=== PATIENT | male | born 1935 | race Caucasian/White ===

== ENCOUNTER 2020-09-22 15:12 | Inpatient (IN) | payer MEDICARE ==
[~2020-09-22] VITALS: Ht 180.3 cm; Wt 85.6 kg
[~2020-09-22 15:12] MED LIST: ALBIPROI INH; ALBU90OI INH; AMOCLA875 PO; AMPI500 PO; ASPI81CH PO; Bactrim Ds Tab1 EACH PO; CEPH500 PO; CYAN1000 PO; ERGO400 PO; FISH1000 PO; HYDACE5 PO; HYDMOR4 PO; HYDPAM50 PO; IBUP600 PO; LEVFLO500 PO; MECL25 PO; MONDOXYNE NL100 MG PO; Norco 5-325 Ta1 EACH PO; ONDA8 PO; PRED20 PO; PROACE100 PO; RXANTBENOT BOTHEARS; TAMS.4ER PO; VITAMIN C COMPLEX PO; Zofran Odt4 MG SL
[2020-09-22 15:56] LABS: BASOPHILS ABSOLUTE AUTO 0.02 K/mm3 (0.00-0.23); BASOPHILS PERCENT AUTO 0 % (0-2); EOSINOPHILS ABSOLUTE AUTO 0.08 K/mm3 (0.00-0.68); EOSINOPHILS PERCENT AUTO 1 % (0-6); Hematocrit 45.1 % (37.0-53.0); Hemoglobin 14.8 g/dL (13.5-17.5); IMMATURE GRAN ABSOLUTE AUTO 0.07 K/mm3 (0.00-0.10); IMMATURE GRAN PERCENT AUTO 1 % (0-1); LYMPHOCYTES ABSOLUTE AUTO 1.28 K/mm3 (0.84-5.20); LYMPHOCYTES PERCENT AUTO 14 % (21-46); MONOCYTES ABSOLUTE AUTO 0.69 K/mm3 (0.16-1.47); MONOCYTES PERCENT AUTO 8 % (4-13); Mean Corpuscular HGB 32.2 pg (26.0-34.0); Mean Corpuscular HGB Conc 32.8 g/dL (31.5-36.5); Mean Corpuscular Volume 98 fL (80-100); NEUTROPHILS ABSOLUTE AUTO 6.75 K/mm3 (1.96-9.15); NEUTROPHILS PERCENT AUTO 76 % (41-73); Platelet Count 295 K/mm3 (150-400); RDW Coefficient Variation 12.5 % (11.7-14.2); RDW Standard Deviation 45.2 fL (35.1-46.3); Red Blood Cell Count 4.59 M/mm3 (4.30-5.90); White Blood Cell Count 8.89 K/mm3 (4.00-11.30)
[2020-09-22 16:12] LABS: Albumin, Blood 3.8 g/dL (3.4-5.0); Albumin/Globulin Ratio 1.1 (0.8-1.8); Bilirubin, Total 0.8 mg/dL (0.1-1.0); Bun/Creatinine Ratio 14.1 (12.0-20.0); Calcium, Blood 9.4 mg/dL (8.5-10.1); Creatinine, Blood 1.28 mg/dL (0.60-1.20); Globulin, Blood 3.6 g/dL (2.2-4.0); Total Protein, Blood 7.4 g/dL (6.4-8.2)
[2020-09-22 21:22] LABS: Source, Urine Clean Catch
[2020-09-22 21:24] LABS: Appearance, Urine Clear (Clear); Bilirubin, Urine Neg (Neg); Blood, Urine 1+ (Neg); Color, Urine Yellow (P-Yellow); Glucose Qualitative, Urine Neg (Neg); Ketones, Urine 3+ (Neg); Leukocyte Esterase, Urine Neg (Neg); Nitrite, Urine Neg (Neg); Protein, Urine 2+ (Neg); Urobilinogen, Urine NORM (Normal)
[2020-09-22 21:30] LABS: Red Blood Cells, Urine 0-2 /hpf (0-2)
[2020-09-22 21:31] LABS: Bacteria Mod /hpf; Squamous Epithelial Cells Not Seen /hpf (Few)
--- NOTE | 2020-09-22 21:43 | NUR ---
NEW ADMIT FROM ER FOR MULTIPLE RIB FX FOLLOWING A FALL WITH A BOOKSHELF LANDING ON HIM. PT ARRIVES TO ROOM VIA GURNEY, ALERT BUT CONFUSED AND ONLY ORIENTED TO SELF. PT DOES CRY OUT IN PAIN WITH MOVEMENT TO BED AND REPOSITIONING. DID PLACE ON LIDOCAINE PATCHES AND MEDICATED WITH ONE OXYCODONE. PT KEPT TRYING TO GET OOB TO URINATE, BUT ONLY URINATED 50ML. BLADDER SCAN SHOWED 316. WILL MONITOR THAT CLOSELY. PT NOW IS CURRENTLY SLEEPING. BED ALARM ON FOR SAFETY.
--- NOTE | 2020-09-23 01:07 | NUR ---
PT'S CONT PULSE OX ALARMING. PT SLEEPING AND SPO2 WAS SUSTAINING 86-88% ON RA. PLACED ON OXYGEN PER NC AND TITRATED TO 2.5L NC TO KEEP >90%.
--- NOTE | 2020-09-23 04:19 | NUR ---
SHIFT SUMMARY PT WITH HX DEMENTIA AND REMAINS CONFUSED AT BASELINE. CURRENTLY COOPERATIVE, BUT DOES TRY TO GET OOB AT TIMES. BED ALARM IN PLACE FOR SAFETY. NEEDS ASSISTANCE WITH URINAL. PT VERY PAINFUL WITH REPOSITIONING. SCHEDULED AND PRN PAIN MEDICATIONS GIVEN PER ORDERS. LIDOCAINE PATCHES IN PLACE. PLACED ON 2.5L VIA NC TO MAINTAIN SATS >90% WHILE SLEEPING. PLAN FOR CUT ORDER HAND CONSULT TODAY AND CONTINUED PAIN MANAGEMENT. CALL LIGHT WITHIN REACH.
--- NOTE | 2020-09-23 18:25 | NUR ---
SHIFT SUMMARY PT HAS BEEN ALERT AND COOPERATIVE, VERY FORGETFUL. UNSURE OF LOCATION AND FORGETFUL OF REASON FOR ADMISSION. HAS BEEN PAINFUL WITH COUGHING BUT RESTS COMFORTABLY OTHERWISE. UP TO CHAIR FOR DINNER AND WITH THERAPY. 2 ASSIST WITH FREQUENT REMINDERS. USING URINAL FREQUENTLY. WILL CALL FOR USE, ATTEMPTS OOB WHEN NEEDS TO VOID. BED ALARM ON DURING SHIFT. PLAN IS TO CONTINUE WORKING WITH THERAPY.
--- NOTE | 2020-09-23 19:30 | NUR ---
RECEIVED REPORT AND ASSUMED CARE OF PT. HE IS LYING IN BED, PLEASANTLY CONFUSED, COOPERATIVE WITH CARE. DENIES ANY NEEDS AT THIS TIME, CALL LIGHT IN REACH. LIEN.
--- NOTE | 2020-09-24 05:21 | NUR ---
SHIFT SUMMARY: JHON AROUSES EASILY AND IS COOPERATIVE WITH CARE. VSS, NO ACUTE EVENTS OVERNIGHT. HE DOES NOT USE THE CALL LIGHT AND ATTEMPTS TO EXIT THE BED WHEN HE FEELS THE URGE TO URINATE. ATTENDS IN PLACE FOR OCCASIONAL INCONTINENCE. HE REPORTS HIS PAIN TOLERABLE WHEN NOT MOVING, BUT CRIES OUT WITH ANY MOVEMENT. TOLERATING PO INTAKE WELL, IVs TO BILATERAL ARMS PATENT, MAINTAINING SATS WITH 2 L VIA NC. HE IS LYING IN BED WITH THE CALL LIGHT IN REACH, BED ALARM ON FOR SAFETY. WILL REPORT TO DAY SHIFT RN.
[2020-09-24 09:37] LABS: Albumin, Blood 3.4 g/dL (3.4-5.0); Anion Gap 4 mmol/L (6-16); Blood Urea Nitrogen 24 mg/dL (8-24); CO2, Blood 27 mmol/L (21-32); Calcium, Blood 8.8 mg/dL (8.5-10.1); Chloride, Blood 106 mmol/L (98-108); Creatinine, Blood 1.09 mg/dL (0.60-1.20); Glomerular Filtration Rate >60 (60-); Glucose, Blood 119 mg/dL (70-99); Phosphorus, Blood 2.3 mg/dL (2.5-4.9); Potassium, Blood 3.9 mmol/L (3.5-5.5); Sodium, Blood 137 mmol/L (136-145)
--- NOTE | 2020-09-24 18:13 | NUR ---
SHIFT SUMMARY: DAY 2. PATIENT IS EATING WELL AND TAKING MEDICATIONS PER EMAR. HE HAS NOT HAD A BM SINCE BEING ADMITTED, ABDOMEN IS DISTENDED AND SLIGHTLY FIRM. BOWEL CARE MEDS WERE ORDERED PER DR, HAVE NOT BEEN ADMINISTERED. PATIENT HAS DEMENTIA AND FORGETS HE HAS BROKEN RIBS SO IT IS NEW PAIN EVERY TIME HE MOVES. PATIENT WAS FOUND STANDING IN ROOM AFTER PT LEFT. PATIENT WAS SAFELY MOVED BACK TO RECLINER AND CHAIR ALARM WAS ACTIVATED. HE WAS MOVED TO BED EARLY EVENING, BED ALARM IS SET, AND ATE DINNER. HE HAS ATTEMPTED TO EXIT THE BED ON PATIENT'S LEFT SIDE, WHICH IS ALSO THE AFFECTED SIDE. PATIENT WAS READJUSTED AND SIDE RAILS X3 WERE RAISED. PATIENT IS RESTING IN BED. TYLENOL AND IBUPROFEN WERE ADMINISTERED AT 1724.
--- NOTE | 2020-09-24 19:15 | NUR ---
RECIEVED REPORT AND ASSUMED CARE OF PT. HE IS LYING IN BED, AWAKE AND ALERT, PLEASANTLY CONFUSED. HE HAS PULLED THE IV FROM HIS LEFT HAND. HE DENIES PAIN OR ANY OTHER NEEDS AT THIS TIME. HE REORIENTS FOR ONLY A FEW MINUTES THEN REPEATS THE QUESTION. LIEN.
--- NOTE | 2020-09-24 22:08 | NUR ---
ASSUMED CARE OF PT AT THIS TIME. PT CURRENTLY RESTING IN BED WITH EYES CLOSED. BED ALARM ON, BED IN LOW POSITION, X3 RAILS UP FOR SAFETY + CALL LIGHT IN REACH.
--- NOTE | 2020-09-24 23:35 | NUR ---
TRANSFER ROOMS PT TRANSFERED FROM ROOM 228 TO 352. MEDICATED FOR DISCOMFORT BEFORE TRANSFER. REPORT TO DALLAS ELLISON. PT TRANSPORTED ON BED TO NEW ROOM WITH BELONGINGS.
--- NOTE | 2020-09-25 04:40 | NUR ---
SHIFT SUMMARY PT XFER'D FROM SURG (228) @ 0050, REC REPORT FROM DALLAS CRONIN; PT A&O X1, PAINFUL W/COUGH AND RESISTS ASSISTANCE W/BED MOVEMENT FROM STAFF D/T PAIN, BEDRESTING AT THIS TIME, CALL LIGHT IN REACH, BED ALARM ACTIVE, DENIES NEEDS AT THIS TIME, WILL CONT TO MONITOR UNTIL REPORT GIVEN TO DAY RN.
--- NOTE | 2020-09-25 17:32 | NUR ---
SHIFT SUMMARY PT ALERT TO SELF ONLY AND IMPULSIVE. PT IS PAINFUL DUE TO HAVING THREE RIB FX'S. STAND PIVOT FROM THE CHAIR TO THE BED WITH A TWO PERSON ASSIST. PT IS VOIDING ON HIS OWN AND HAS NOT EXPERIENCED ANY URINARY RETENTION THIS SHIFT. SPOKE WITH COAL HANDLING SUPERVISOR AND PT IS NOT A CANDIDATE FOR SNF DUE TO HIS DEMENTIA. PT TO DISCHARGE HOME WITH FAMILY AND POSSIBLY RECEIVE HOME HEALTH SERVICES. VSS. RESTING IN BED WITH HIS CALL LIGHT IN REACH.
--- NOTE | 2020-09-26 06:21 | NUR ---
SHIFT SUMMARY ALERT TO SELF. ABLE TO MAKE NEEDS KNOWN. COOPERATIVE WITH CARE. LUMMI. C/O PAIN/DISCOMFORT TO GENERALIZED AND L RIBS; MEDICATED PER EMAR. CONTINULLY ATTEMPTING TO EXIT BED; 4 SIDE RAIL PLACED FOR SAFETY. APPEARED TO REST MINIMALLY. NO OTHER ACUTE CHANGES NOTED. BED REMAINED IN LOWEST POSITION; ALARM ON. CALL LIGHT AND BELONGINGS WITHIN REACH. CONTINUE WITH CURRENT PLAN OF CARE. REPORT TO ONCOMING RN.
--- NOTE | 2020-09-26 18:27 | NUR ---
SHIFT SUMMARY PT ALERT TO SELF ONLY AND EXPERIENCING MORE PAIN THIS SHIFT. HE IS VERY PAINFUL TO MOVE BUT WORKED WITH WITH P/T. IN 4 BEDRAIL RESTRAINTS. PT HAS NOT TRIED TO GET UP MUCH THIS SHIFT DUE TO THE PAIN. MEDICATED WITH DILAUDID DUE TO THE PATIENT EXPERIENCING AN INCREASE IN PAIN. VSS. WILL REPORT TO ABY HAYNES.
--- NOTE | 2020-09-27 04:53 | NUR ---
SHIFT SUMMARY ALERT TO SELF. ABLE TO MAKE NEEDS KNOWN. COOPERATIVE WITH CARE. FOLLOWS DIRECTIONS. CONFUSED. [place]. C/O PAIN/DISCOMFORT TO L SIDE/GENERALIZED; MEDICATED PER EMAR. PAIN MANAGMENT APPEARS TO BE MUCH BETTER. APPEARED TO REST MUCH OF THE NIGHT. PULLS OFF O2 TUBING AND CONT BIOX CORD; REMINDED TO LEAVE IN PLACE, EXPRESSES UNDERSTANDING. VSS/AFEBRILE. NO OTHER ACUTE CHANGES NOTED. BED REMAINS IN LOWEST POSITION WITH SIDE RAILS X4 FOR SAFETY; BED ALARM ACTIVATED. CALL LIGHT AND BELONGINGS WITHIN REACH. CONTINUE WITH CURRENT PLAN OF CARE. REPORT TO ONCOMING RN.
--- NOTE | 2020-09-27 18:50 | NUR ---
BEDSIDE REPORT REPORT GIVEN BY DALLAS PATINO. STATES PATIENT HAS NOT BEEN IN RESTRAINTS (4 SIDE RAILS) ALL DAY. DOING MUCH BETTER AND GETTING UP WITH 1-2P ASSIST TO BATHROOM. APPEARS TO BE RESTING WITHOUT ANY NEEDS WATCHING TV. BED IN LOWEST POSITION; ALARM ON. CALL LIGHT WITHIN REACH.
--- NOTE | 2020-09-27 19:13 | NUR ---
SHIFT SUMMARY: PT CONFUSED; ALERT, ORIENTED TO SELF AND FAMILY; CALM AND COOPERATIVE WITH CARE. MEDICATED FOR L RIB PAIN PER EMAR. MOIST COUGH; ENCOURAGED TO USE INCENTIVE SPIROMETER & AMBULATE; BREATHING CLEARER. AWAITING SAFE DISCHARGE PLAN. REPORT GIVEN TO ONCOMING RN.
[2020-09-28 05:20] LABS: Hematocrit 39.1 % (37.0-53.0); Hemoglobin 12.9 g/dL (13.5-17.5); Mean Corpuscular HGB 32.3 pg (26.0-34.0); Mean Corpuscular Volume 98 fL (80-100); Mean Platelet Volume 10.4 fL (9.1-12.4); Platelet Count 261 K/mm3 (150-400); RDW Coefficient Variation 12.5 % (11.7-14.2); RDW Standard Deviation 45.1 fL (35.1-46.3); White Blood Cell Count 9.04 K/mm3 (4.00-11.30)
--- NOTE | 2020-09-28 05:30 | NUR ---
SHIFT SUMMARY ALERT TO SELF. CONFUSED. CONTINUED TO NEED RE-DIRECTION MUCH OF THE NIGHT. DIFFICULTY FOLLOWING DIRECTIONS. COOPERATIVE WITH CARE; HOWEVER BECOMES AGITATED WHEN WANTS TO DO THINGS HIS OWN WAY. REMINDED MULTIPLE TIMES THAT DIRECTIONS THAT ARE GIVEN ARE FOR HIS SAFETY. CONTINUAL ATTEMPTS TO GET OUT OF BED WITHOUT HELP. C/O PAIN/DISCOMFORT TO L RIBS; MEDICATED PER EMAR. BED REMAINED IN LOWEST POSITION; ALARM ON. CALL LIGHT AND BELONGINGS WITHIN REACH. CONTINUE WITH CURRENT PLAN OF CARE. REPORT TO ONCOMING RN.
[2020-09-28 05:44] LABS: Albumin, Blood 2.9 g/dL (3.4-5.0); Anion Gap 5 mmol/L (6-16); Blood Urea Nitrogen 23 mg/dL (8-24); Bun/Creatinine Ratio 21.9 (12.0-20.0); CO2, Blood 27 mmol/L (21-32); Calcium, Blood 9.2 mg/dL (8.5-10.1); Chloride, Blood 106 mmol/L (98-108); Creatinine, Blood 1.05 mg/dL (0.60-1.20); Glomerular Filtration Rate >60 (60-); Glucose, Blood 96 mg/dL (70-99); Phosphorus, Blood 3.1 mg/dL (2.5-4.9); Potassium, Blood 3.8 mmol/L (3.5-5.5); Sodium, Blood 138 mmol/L (136-145)
[2020-09-28] MEDS ORDERED: ACET500 PO (13:21)
[2020-09-28] MEDS ORDERED: DOCU100 PO (13:22)
[2020-09-28] MEDS ORDERED: IBUP400 PO (13:22)
[2020-09-28] MEDS ORDERED: SENNA LAXATIVE8.6 MG PO (13:23)
[2020-09-28] MEDS ORDERED: TAMS.4ER PO (13:24)
[2020-09-28] MEDS ORDERED: TRAM50 PO (13:25)
--- NOTE | 2020-09-28 18:31 | NUR ---
SHIFT SUMMARY PATIENT A/O TO SELF/FAMILY THIS SHIFT. PATIENT IS IMPULSIVE AND DIFFICULT TO REDIRECT. PATIENT HAS BEEN SBA IN THE ROOM. PATIENT HAS BEEN DISCHARGED TO HOME, AWAITING WHEELCHAIR TRANSPORTATION. PATIENT'S IN THE ROOM THIS AFTERNOON, RECEIVED DISCHARGE AND MEDICATION INSTRUCTIONS. PATIENT MEDICATED THROUGHOUT THIS SHIFT FOR PAIN IN L RIBS. PATIENT CURRENTLY SITTING UP IN RECLINER EATING DINNER.
--- NOTE | 2020-09-28 20:09 | NUR ---
@2003- PT. DISCHARGED TO HOME. TRANSPORTED VIA STRETCHER BY EMS. NO BELONGINGS IN THE ROOM AT THE TIME, FACE SHEET PROVIDED TO EMS.
== END 2020-09-28 20:03 | disposition home or self-care (01) | DRG 185 ==
LOC: ER 15:12 → ERHOLD 19:25 → SURS 20:05 → MEDS 09-24 23:27 → ENPENDDIS 09-28 12:28 → MEDS 09-28 20:03
PROVIDERS: Emergency Medicine; Internal Medicine; ADMIT Surgery
DX: S22.42XA Multiple fractures of ribs, left side, initial encounter for closed fracture (principal); F03.90 Unspecified dementia, unspecified severity, without behavioral disturbance, psychotic disturbance, mood disturbance, and anxiety; D64.9 Anemia, unspecified; W20.8XXA Other cause of strike by thrown, projected or falling object, initial encounter; J44.9 Chronic obstructive pulmonary disease, unspecified; I10 Essential (primary) hypertension; G47.33 Obstructive sleep apnea (adult) (pediatric); E66.9 Obesity, unspecified; K59.00 Constipation, unspecified; N40.1 Benign prostatic hyperplasia with lower urinary tract symptoms; R33.8 Other retention of urine; Z88.1 Allergy status to other antibiotic agents; Z88.8 Allergy status to other drugs, medicaments and biological substances; Z90.49 Acquired absence of other specified parts of digestive tract; Z90.79 Acquired absence of other genital organ(s); Z98.890 Other specified postprocedural states; Y92.008 Other place in unspecified non-institutional (private) residence as the place of occurrence of the external cause; Z87.442 Personal history of urinary calculi; Z68.27 Body mass index [BMI] 27.0-27.9, adult
CPT/HCPCS: 36415; 71045; 71260; 74177; 80053; 80069; 81001; 85025; 85027; 86850; 86900; 86901; 87086; 94640; 94762; 96374; 96375; 96376; 97110; 97116; 97162; 97166; 97530; 97535; 99285-25; A9270; J1170; J1650; J2270; J2405; J3010; J7030; Q9967